=== PATIENT | female | born 1960 | race Caucasian/White ===

== ENCOUNTER 2017-07-15 07:49 | Day surgery (SDC) | payer SELFPAY ==
[~2017-07-15 07:49] MED LIST: Lactated Ringers 1,000 ML IV SCH
[2017-07-15] MEDS ORDERED: Propofol 200 MG/20 ML SDV IV ONE (09:00)
--- NOTE | 2017-07-15 09:31 | PCM.OPNOTE ---
- General Post-Op/Procedure Note Date of Surgery/Procedure: 07/15/17 Operative Procedure(s): c scope with bx Findings: internal hemorrhoids sigmoid diverticulosis descending colon polyp Pre Op Diagnosis: bleeding per rectum Post-Op Diagnosis: internal hemorrhoids. sigmoid diverticulosis. descending colon polyp Anesthesia Technique: MAC Primary Surgeon: James Castellanos Anesthesia Provider: Prabha Clifford Pathology: colon polyp Complications: None Condition: Good Free Text/Narrative:: see dictation
[2017-07-15 11:43] VITALS: BP 128/75
--- NOTE | 2017-07-15 15:05 | OR ---
DATE OF OPERATION: 07/15/2017 SURGEON: James Castellanos MD PROCEDURE PERFORMED: Colonoscopy with cold forceps biopsy. PREOPERATIVE DIAGNOSIS: Hematochezia. POSTOPERATIVE DIAGNOSES: Descending colon polyp, sigmoid diverticulosis, and internal hemorrhoids. INDICATIONS FOR PROCEDURE: This is a 56-year-old white female, who is referred with a history of bright red blood per rectum. She has had scopes in the past and has only been found to have hemorrhoids. She was offered and accepted a repeat colonoscopy. DESCRIPTION OF PROCEDURE: After an excellent IV sedation was administered, digital rectal exam was performed. No marked abnormality was noted. Flexible colonoscope was inserted and advanced to the cecum without difficulty. The prep was excellent. The following findings were noted. Ascending colon, unremarkable. Transverse colon, unremarkable. Descending colon, small hyperplastic polyp noted, biopsied with cold biopsy forceps. Sigmoid, mild diverticulosis. Rectum and anus unremarkable. On retroflexion of the scope, there was evidence of internal hemorrhoids. The patient tolerated the procedure well and was taken to recovery in good condition. /[id number] /MODL
== END 2017-07-15 10:35 | disposition home or self-care (01) ==
LOC: FB.SDS 07:49
PROVIDERS: ATTEND Surgery
DX: D12.4 Benign neoplasm of descending colon (principal); K57.30 Diverticulosis of large intestine without perforation or abscess without bleeding; K64.8 Other hemorrhoids; I10 Essential (primary) hypertension; E11.9 Type 2 diabetes mellitus without complications; F41.8 Other specified anxiety disorders; Z79.84 Long term (current) use of oral hypoglycemic drugs; Z79.899 Other long term (current) drug therapy
CPT/HCPCS: 00810; 45380; 82962; 88305; J2704; J7120